=== PATIENT | male | born 1945 | race Caucasian/White ===

== ENCOUNTER 2023-10-18 09:46 | Emergency (ER) | payer MEDICARE, BC, SELFPAY ==
[2023-10-18 09:51] VITALS: BP 153/70
--- NOTE | 2023-10-18 12:18 | ED.GENMED ---
History of Present Illness
General
Chief Complaint: Musculo-Skeletal Complaint
Source: patient
Exam Limitations: none
Time Seen by Provider: 10/18/23 11:16
Nursing documentation reviewed up to this point in time: agreed with
Travel History
Have you had any contact with someone who has COVID-19?: No
Do you have any symptoms of coronavirus? Fever > 100 degrees, chills, cough, shortness of breath, sore throat, loss of taste or smell, muscle aches, or headache?: No
History of Present Illness
History of Present Illness:
pt is a 77 y/o M with h/o NIDDM
here with atraumatic left groin pain, startxzs in the back and wraps around to left hip and groin
no weakness, numbness, incontinence (of stool)
from [place] and is here just until tomorrow whne he is supposed to takie a cruise to [place]
was doing a lot more walking because of preparing for the trip and thinks maybe he did something but didn't recall any specific injury
he is able to walk but with pain
he has h/oi urostomy secondary to bladder cancer remotely
no chagnes to his urine, no sediment, no hematuria, no dec output
Past History
Past History
ED Past Medical History: Cancer (bladder), HTN and Hypercholesterolemia
ED Past Surgical History: Urological (urostomy, ilieal conduit)
Social History
Tobacco: Non-smoker
Alcohol: None
Drug: None
Personal:
Living: with family
Review of Systems
Review of Systems
Allergies reviewed?: Yes
All Other Systems: Not applicable
Phy Exam
Physical Exam
Physical Exam:
GENERAL: Alert , in no apparent distress, comfortable at rest
HEAD: NCAT
NECK: no midline tenderness, active ROM intact, no paraspinal muscle tenderness;
CARDIAC: Regular rate and rhythm, no edema
LUNGS: Clear breath sounds bilaterally, no acute respiratory distress, no wheezes/rales/rhonchi
ABDOMEN: Soft, without focal tenderness, no r/g, no cvat, normal bowel sounds, nondistended
NEUROLOGICAL: Alert and oriented, no focal neuro deficits, CN intact, 5/5 strength, sensation intact, able to ambulate steadily, no limp, no weakness
SKIN: Warm and dry,
MUSCULOSKELETAL: No edema, well perfused. Normal inspection of the left hip, left leg
Patient has no tenderness to palpation of the hip, minimal tenderness in the SI joint
mild pain with hip flexion and rotation internal and external
neg straight leg raise
Back: No midline tenderness, no swelling
negative straight leg raise Bilaterally
PSYCH: Normal and appropriate interaction.
Course
Orders/Labs/Results
Orders:
Orders
10/18/23 09:58
CR Hip - LT w/wo Pel 2-3 Vw* Urgent
Reason For Exam: pain
Include a pelvis x-ray?: No
10/18/23 12:18
Acetaminophen [Tylenol] 650 mg PO NOW STA
Ketorolac [Toradol] 15 mg IM NOW STA
Vital Signs
Initial and Last Documented VS:
Initial Vital Signs
Temp Pulse Resp BP Pulse Ox
97.6 F 53 20 153/70 99
10/18/23 09:51 10/18/23 09:51 10/18/23 09:51 10/18/23 09:51 10/18/23 09:51
Last Documented Vital Signs
Temp Pulse Resp BP Pulse Ox
97.6 F 59 20 141/72 98
10/18/23 09:51 10/18/23 13:23 10/18/23 13:23 10/18/23 13:23 10/18/23 13:23
MDM/Problems Addressed
Differential Diagnosis Includes:
lumbar radiculopathy/back pain, hip arthritis, pelvic fracture
MDM/Problems Addressed:
77-year-old male from out of town, status post remote bilateral hip replacements, 5 days of atraumatic left back pain around to his left groin. Does not go down his leg, no numbness or tingling or weakness. Patient has urostomy bag because of
bladder cancer and is not obviously reporting any incontinence, of stool. He has taken Tylenol occasionally for pain. The pain is worse when he is ambulating or changing positions. He is concerned because he is going on a cruise tomorrow to
[place] and wanted his hip to be checked out. On exam the patient has no tenderness, no skin changes, normal femoral pulse, some pain with active flexion of the hip and mild pain with rotation internal and external but able to tolerate it well.
Negative straight leg raise, no back tenderness. Able to ambulate without assistance, I do not appreciate a limp. His urostomy is draining clear urine. X-rays were independently reviewed by me and discussed with the orthopedist on-call. He has
some metallic fragments near the femoral head component of the total left hip arthroplasty suspicious for hardware failure. He has severe discogenic degenerative disease
I suspect the patient's pain is more coming from his back rather than directly from the hip but I spoke with the orthopedist, she agreed that these changes on x-ray are not concerning for him to acutely need management, when he returns home he can
see his orthopedist. Patient again was able to ambulate quite well. He is concerned about having severe pain when he is overseas. Will give him a short course of oxycodone which she has tolerated in the past but recommend Tylenol 3 times a day,
lidocaine patches. Return precautions, no red flag symptoms for cauda equina
*Critical Care Note
Total Time (30-74mins, 75-104mins- exclusive of procedures): Not Applicable
ED Attending Note
-
Portions of this chart may have been created with voice recognition software.� Occasional wrong word or��sound alike� substitutions may have occurred due to the inherent limitations of voice recognition software.
Discharge Plan
Departure
Patient Disposition: Home (Routine Discharge)
Date of Disposition: 10/18/23
Time of Disposition: 13:19
Patient with high blood pressure during this ER visit?: Yes
Condition: Fair
Covid-19: Not Applicable
Discharge Problem:
DDD (degenerative disc disease), lumbar
Instructions: Degenerative Disc Disease (DC)
Prescriptions:
New
oxycodone 5 mg tablet
5 mg PO Q8H PRN (Reason: Pain) Qty: 12 0RF
lidocaine 5 % adhesive patch,medicated
1 patch topical DAILY PRN (Reason: back pain) Qty: 15 0RF
Referrals:
NONE,* [Family Provider] -
Activity Restrictions/Additional Instructions:
You have a lot of arthritis in your back which could be causing your pain. You also had very subtle metallic fragments in the left hip region of the arthroplasty suggesting that the hardware has broken down. I spoke with orthopedist on-call and
she did not think that the hardware issue would be an emergency for now but when you return to [place] you should get this checked out.
For your pain you can do Tylenol 2 regular strength tabs or 2 extra strength tabs 3 times a day as needed for pain. When the pain is more severe you can use oxycodone 5 mg. You can do this every 8 hours, but be aware that this can cause
constipation and you should use a stool softener when you take it.
You can apply a lidocaine patch on your back and leave it on for 12 hours, then take it off for 12 hours and when the patch is off use ice or heat.
You need to be reexamined if you have any leg swelling, weakness, numbness or tingling, fever or chills, chest pain, shortness of breath, color change to the leg, urinary symptoms, incontinence of stool etc.
Interventions
Interventions:
*Risk Screen - Suicide Last Done: 10/18/23 09:51
*General Assessment Last Done: 10/18/23 09:51
*Neglect/Abuse Screening Last Done: 10/18/23 09:51
*Nursing Disposition Last Done: 10/18/23 13:44
ED-Musculoskeletal Assessment Last Done: 10/18/23 12:30
Discharge Date and Time
Discharge Date/Time: 10/18/23 13:45
Print Language: SENEGALESE
[2023-10-18] MEDS: TYLENOL 650 MG PO (13:01)
[2023-10-18] MEDS: TORADOL 15 MG IM (13:02)
[2023-10-18 13:23] VITALS: BP 141/72
== END 2023-10-18 13:45 | disposition home or self-care (01) ==
LOC: EMR 09:46
PROVIDERS: EMERGENCY PHYSICIAN Emergency Medicine
DX: M51.36 Other intervertebral disc degeneration, lumbar region (principal); E11.9 Type 2 diabetes mellitus without complications; E78.00 Pure hypercholesterolemia, unspecified; I10 Essential (primary) hypertension; Z85.51 Personal history of malignant neoplasm of bladder; Z96.643 Presence of artificial hip joint, bilateral
CPT/HCPCS: 99283; 96372; 73502